=== PATIENT | female | born 2000 | race Caucasian/White ===

== ENCOUNTER 2023-05-02 18:56 | Emergency (ER) | payer OTHER ==
[~2023-05-02] VITALS: Ht 162.6 cm; Wt 108.9 kg
[2023-05-02 19:05] VITALS: BP_SYST 145; PULSE 98; RESP 20; TEMP 98.7; O2SAT 100
--- NOTE | 2023-05-02 19:10 | NUR ---
Patient to ER chair 2 for evaluation. Side rails up. Report given to LUIS Hines.
--- NOTE | 2023-05-02 19:15 | NUR ---
YANELY BEDOYA AT BEDSIDE EVALUATING PATIENT.
--- NOTE | 2023-05-02 19:33 | NUR ---
Pt BIB partner. c/o pelvic pain onset of 1 week. pt states to have went to urgent care and was told she didnt have a UTI but she feels as the pain is getting worse pt rates pain 7/10. Pt states to have nausea but no vomiting or diarrhea. pt states pain radiates to back. Pt states no trauma to area and has had normal BM. Pt denies buring upon urination. Pt states to have took ibuprofen for pain but has not found relief. Pt AAOX4. Skin dry and intact. VSS. Pt aferbile. Pt speaking full complete sentences. Pt in bed with siderails up/
[2023-05-02 19:54] LABS: BILIRUBIN,URINE NEGATIVE (NEGATIVE); BLOOD, URINE NEGATIVE (NEGATIVE); COLOR,URINE YELLOW (YELLOW); GLUCOSE,URINE NEGATIVE (NEGATIVE); KETONES,URINE NEGATIVE (NEGATIVE); LEUKOCYTE ESTERASE ,URINE NEGATIVE (NEGATIVE); NITRITE, URINE NEGATIVE (NEGATIVE); PROTEIN URINE NEGATIVE (NEGATIVE); UROBILINOGEN,URINE 0.2 (0.2-1.0)
[2023-05-02 20:06] LABS: CLARITY/URINE HAZY (CLEAR)
[2023-05-02 20:10] LABS: BACTERIA,URINE MODERATE /HPF (None Seen); RBC,URINE NONE SEEN /HPF (0-3); WBC,URINE 0-3 /HPF (0-3)
[2023-05-02 20:11] LABS: MUCUS,URINE 2+ /LPF (None Seen)
[2023-05-02 21:23] VITALS: BP_SYST 145; PULSE 98; RESP 20; TEMP 98.7; O2SAT 100
--- NOTE | 2023-05-02 21:23 | NUR ---
Patient given written and verbal discharge instructions and verbalizes understanding. ER MD discussed with patient the results and treatment provided. Patient in stable condition. ID arm band removed. Patient educated on pain management and to follow up with PMD. Opportunity for questions provided and answered. Medication side effect fact sheet provided.
== END 2023-05-02 21:23 | disposition home or self-care (01) ==
LOC: SED 18:56
DX: R10.2 Pelvic and perineal pain (principal); Z79.899 Other long term (current) drug therapy
CPT/HCPCS: 36415; 81000; 84702; 87086; 87210-TC; 99283